=== PATIENT | male | born 1950 | race Caucasian/White ===

== ENCOUNTER 2023-07-16 09:14 | Outpatient (CLI) | payer MEDICARE, OTHER | END 2023-07-16 09:15 | disposition home or self-care (01) | LOC: RT 09:14 | PROVIDERS: ATTEND Internal Medicine Clinical Cardiac Electrophysiology | DX: I48.0 Paroxysmal atrial fibrillation (principal) | CPT/HCPCS: 93005 ==

== ENCOUNTER 2024-04-08 16:08 | Outpatient (CLI) | payer MEDICARE, OTHER ==
--- NOTE | 2024-04-09 12:50 | XRAY Report ---
Hip w/Pelvis 2-3V RT HISTORY: 74 years of age, POST TRAUMATIC R HIP PAIN: Call results to mobile [phone] TECHNIQUE: Hip w/Pelvis 2-3V RT COMPARISON: None. 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 No acute fracture or di slocation of the right hip. Reviewed by: Mili Leonard MD on 04/09/2024 12:49 PM PDT Approved by: Mili Leonard MD on 04/09/2024 12:49 PM PDT Station ID: [id number]
== END 2024-04-08 16:09 | disposition home or self-care (01) ==
LOC: DI 16:08
DX: M16.0 Bilateral primary osteoarthritis of hip (principal)